=== PATIENT | female | born 1980 | race Caucasian/White ===

== ENCOUNTER 2023-09-13 18:36 | Emergency (ER) | payer BC ==
[~2023-09-13] VITALS: Ht 162.6 cm; Wt 82.7 kg
[2023-09-13] MEDS ORDERED: TETanus/Pertussis (Acell)/Diphther VAC/PF (Tdap-Adult) 0.5ml syringe IMVAC ONE (18:55)
[2023-09-13] MEDS ORDERED: HYDROcodone/acetaminophen 5mg/325mg tablet PO ONE (20:30)
[2023-09-13] MEDS ORDERED: HYDR-3965 PO ×2 (21:12→21:46)
[2023-09-13 21:29] VITALS: BP 132/80; PULSE 67; RESP 14; TEMP 98.3; O2SAT 99
--- NOTE | 2023-09-14 00:21 | NUR ---
I AGREE WITH ASSESMENT OF [employer] SPECIALIST.
[2023-09-14] MEDS ORDERED: HYDR-3965 PO (09:21)
== END 2023-09-13 21:51 | disposition home or self-care (01) ==
LOC: ER 18:36
DX: S82.492A Other fracture of shaft of left fibula, initial encounter for closed fracture (principal); X58.XXXA Exposure to other specified factors, initial encounter; Y93.89 Activity, other specified; Y92.89 Other specified places as the place of occurrence of the external cause; Y99.8 Other external cause status
CPT/HCPCS: 29515; 73564; 73610; 90471; 90715; 99284; A6449